=== PATIENT | male | born 1930 | race Caucasian/White ===

== ENCOUNTER → 2018-05-28 | Outpatient (CLI) | payer MEDICARE ==
[~2018-05-28] MED LIST: DIAZEPAM 10 MG TABLET. ONE; IOHEXOL 300 MG/ML 50 ML VIAL. ONE; IV NORMAL SALINE 500ML BAG 500 ML ONE; LIDOCAINE 1% Multi-Dose 50 ML VIAL. ONE; MIDAZOLAM HCL/PF 2 MG/2 ML VIAL. ONE; fentaNYL PF VIAL 100 MCG/2 ML VIAL ONE
--- NOTE | 2018-05-28 09:14 | PCVCINTER ---
EXAM: L1 KYPHOPLASTY INDICATION: Back pain not responding to conservative therapy. Osteoporosis. Subacute compression fractures. PROCEDURE: Procedure and risks of kyphoplasty including bleeding, infection, apparent cement placement, and neurologic deficit were discussed with the patient and consent obtained. IV conscious sedation was utilized with appropriate monitoring for 30 minutes. Patient was placed prone in the interventional suite and the back was prepped with a 10 minute Betadine scrub followed by Betadine pain with sterile draping. IV antibiotics were given. Under fluoroscopic guidance an 11-gauge kyphoplasty needle/cannula was advanced across the left L1 pedicle via a posterolateral approach and its tip positioned in the anterior-midline portion of the vertebral body under fluoroscopic guidance. The kyphoplasty balloon was placed through the cannula into the vertebral body and inflated to restore height and create a void. Balloon was removed and catheter fusion cement was carefully instilled into the vertebra under continuous fluoroscopic guidance. Needle/cannula was removed. No immediate complications. FINDINGS: Technically satisfactory L1 kyphoplasty using fluoroscopic guidance. Adequate cement placement within the vertebral body. No worrisome cement placement. IMPRESSION: L1 kyphoplasty as described above. EXAM: L2 KYPHOPLASTY INDICATION: Back pain not responding to conservative therapy. Osteoporosis. Subacute compression fractures. PROCEDURE: Procedure and risks of kyphoplasty including bleeding, infection, apparent cement placement, and neurologic deficit were discussed with the patient and consent obtained. IV conscious sedation was utilized with appropriate monitoring for 30 minutes. Patient was placed prone in the interventional suite and the back was prepped with a 10 minute Betadine scrub followed by Betadine pain with sterile draping. IV antibiotics were given. Under fluoroscopic guidance an 11-gauge kyphoplasty needle/cannula was advanced across the left L2 pedicle via a posterolateral approach and its tip positioned in the anterior-midline portion of the vertebral body under fluoroscopic guidance. The kyphoplasty balloon was placed through the cannula into the vertebral body and inflated to restore height and create a void. Balloon was removed and catheter fusion cement was carefully instilled into the vertebra under continuous fluoroscopic guidance. Needle/cannula was removed. No immediate complications. FINDINGS: Technically satisfactory L2 kyphoplasty using fluoroscopic guidance. Adequate cement placement within the vertebral body. No worrisome cement placement. IMPRESSION: L2 kyphoplasty as described above. FOLLOW-UP: I will follow up with the patient in clinic in 2 weeks regarding their progress. LOC:[id number]
== END | disposition home or self-care (01) ==
LOC: PCVCINTER 07:03
PROVIDERS: ATTEND Nuclear Medicine Nuclear Cardiology
DX: M80.88XA Other osteoporosis with current pathological fracture, vertebra(e), initial encounter for fracture (principal); M54.5 Low back pain; K21.9 Gastro-esophageal reflux disease without esophagitis; Z85.46 Personal history of malignant neoplasm of prostate; Z90.49 Acquired absence of other specified parts of digestive tract; Z98.890 Other specified postprocedural states; Z98.52 Vasectomy status; Z87.891 Personal history of nicotine dependence; Z79.82 Long term (current) use of aspirin; Z79.899 Other long term (current) drug therapy
CPT/HCPCS: 22514; 22515; 99152; 99153; J0690; J2250; J3010; J7040; Q9967

== ENCOUNTER → 2018-06-11 | Outpatient (CLI) | payer MEDICARE ==
[~2018-06-11] MED LIST changes: +LIDOCAINE 1% Multi-Dose 20 ML VIAL. ONE; -LIDOCAINE 1% Multi-Dose 50 ML VIAL. ONE
--- NOTE | 2018-06-11 12:00 | PCVCINTER ---
EXAM: T12 KYPHOPLASTY INDICATION: Back pain not responding to conservative therapy. Osteoporosis. Subacute compression fractures. PROCEDURE: Procedure and risks of kyphoplasty including bleeding, infection, apparent cement placement, and neurologic deficit were discussed with the patient and consent obtained. IV conscious sedation was utilized with appropriate monitoring for 30 minutes. Patient was placed prone in the interventional suite and the back was prepped with a 10 minute Betadine scrub followed by Betadine pain with sterile draping. IV antibiotics were given. Under fluoroscopic guidance an 11-gauge kyphoplasty needle/cannula was advanced across the left T12 pedicle via a posterolateral approach and its tip positioned in the anterior-midline portion of the vertebral body under fluoroscopic guidance. The kyphoplasty balloon was placed through the cannula into the vertebral body and inflated to restore height and create a void. Balloon was removed and catheter fusion cement was carefully instilled into the vertebra under continuous fluoroscopic guidance. Needle/cannula was removed. No immediate complications. FINDINGS: Technically satisfactory T12 kyphoplasty using fluoroscopic guidance. Adequate cement placement within the vertebral body. No worrisome cement placement. IMPRESSION: T12 kyphoplasty as described above. FOLLOW-UP: I will follow up with the patient in clinic in 2 weeks regarding their progress. LOC:[id number]
== END | disposition home or self-care (01) ==
LOC: PCVCINTER 09:41
PROVIDERS: ATTEND Nuclear Medicine Nuclear Cardiology
DX: M80.88XA Other osteoporosis with current pathological fracture, vertebra(e), initial encounter for fracture (principal); M54.5 Low back pain; I10 Essential (primary) hypertension; K21.9 Gastro-esophageal reflux disease without esophagitis; Z85.46 Personal history of malignant neoplasm of prostate; Z90.49 Acquired absence of other specified parts of digestive tract; Z98.890 Other specified postprocedural states; Z98.52 Vasectomy status; Z87.891 Personal history of nicotine dependence; Z98.49 Cataract extraction status, unspecified eye; Z96.1 Presence of intraocular lens; Z79.82 Long term (current) use of aspirin; Z79.899 Other long term (current) drug therapy
CPT/HCPCS: 22513; 99152; 99153; J0690; J2250; J3010; J7040; Q9967